=== PATIENT | male | born 1955 | race Caucasian/White ===

== ENCOUNTER 2020-06-22 05:09 | Inpatient (IN) ==
--- NOTE | 2020-06-14 12:27 | PAT Medication Instructions ---
Medication Instructions Date of Service June 14, 2020 Home Medications amlodipine 10 mg PO QAM ascorbic acid (vitamin C) [Vitamin C] 500 mg PO QAM aspirin [Aspir-81] 81 mg PO HS clonidine HCl 0.2 mg PO HS fenofibrate nanocrystallized 145 mg PO QAM garlic 1,000 mg PO QAM linagliptin-metformin [Jentadueto XR] 1 tab PO QPM losartan 100 mg PO QAM lovastatin 40 mg PO HS magnesium oxide 400 mg PO BID metoprolol tartrate 25 mg PO BID multivitamin 1 tab PO QAM omega 4-qwm-zad-fish oil [[place] 3 Fish Oil] 1 cap PO QAM omeprazole 20 mg PO QAM STOP taking 2 weeks before surgery (or as soon as possible if surgery is within 2 weeks) garlic 1,000 mg PO QAM omega 7-tzo-cub-fish oil [[place] 3 Fish Oil] 1 cap PO QAM STOP taking 48 hours before surgery fenofibrate nanocrystallized 145 mg PO QAM DO NOT take the morning of surgery ascorbic acid (vitamin C) [Vitamin C] 500 mg PO QAM losartan 100 mg PO QAM magnesium oxide 400 mg PO BID multivitamin 1 tab PO QAM Take morning of surgery With a small sip of water, OTHERWISE NOTHING TO EAT OR DRINK AFTER MIDNIGHT: amlodipine 10 mg PO QAM metoprolol tartrate 25 mg PO BID omeprazole 20 mg PO QAM Take evening before surgery aspirin [Aspir-81] 81 mg PO HS clonidine HCl 0.2 mg PO HS linagliptin-metformin [Jentadueto XR] 1 tab PO QPM lovastatin 40 mg PO HS magnesium oxide 400 mg PO BID metoprolol tartrate 25 mg PO BID Other Notes If you have any questions please call us at [phone] or [phone] or [phone] or [phone]
--- NOTE | 2020-06-16 11:34 | Anesthesiology Consultation ---
Date of Service June 16, 2020 Assessment & Plan (1) Encounter for pre-operative examination: - COVID screening: Per assessment on 06/16: Travel screen negative, no known COVID-19 positive contacts or current COVID-19 related symptoms. Patient has had initial covid vaccine. Surgeon arranging preop COVID testing (scheduled 06/17 but patient will see if able to do 06/16 at surgeon's office). Awaiting results. - Check BSG AM DOS - ASA instructions: to continue perioperatively unless told otherwise by surgeon/prescriber Chart Review Chart Review: Acceptable Risk for Surgery (pending surgeon-ordered PCP clearance ) and Patient seen in Pre Admission Testing Teaching & Discussion Pre-Anesthesia Teaching/Discussion Notes: Instructed NPO after midnight before surgery,except medications with 15 cc of water. Medication instructions provided according to the PAT guidelines. History Surgery Operation Date: 06/22/20 11:20 Proposed Procedures p Right Anterior Total Hip Arthroplasty - Neri Strauss DO Height/Weight Height: 5 ft 7 in Weight: 84.6 kg Allergies Allergy/AdvReac Type Severity Reaction Status Date / Time No Known Allergies Allergy Verified 06/02/20 10:49 Medications Home Medications Medication Instructions Recorded Confirmed Last Taken amlodipine 10 mg PO QAM 06/02/20 06/02/20 Unknown ascorbic acid (vitamin C) [Vitamin 500 mg PO QAM 06/02/20 06/02/20 Unknown C] aspirin [Aspir-81] 81 mg PO HS 06/02/20 06/02/20 Unknown clonidine HCl 0.2 mg PO HS 06/02/20 06/02/20 Unknown fenofibrate nanocrystallized 145 mg PO QAM 06/02/20 06/02/20 Unknown garlic 1,000 mg PO QAM 06/02/20 06/02/20 Unknown linagliptin-metformin [Jentadueto 1 tab PO QPM 06/02/20 06/02/20 Unknown XR] losartan 100 mg PO QAM 06/02/20 06/02/20 Unknown lovastatin 40 mg PO HS 06/02/20 06/02/20 Unknown magnesium oxide 400 mg PO BID 06/02/20 06/02/20 Unknown metoprolol tartrate 25 mg PO BID 06/02/20 06/02/20 Unknown multivitamin 1 tab PO QAM 06/02/20 06/02/20 Unknown omega 6-ued-zsa-fish oil [[place] 3 1 cap PO QAM 06/02/20 06/02/20 Unknown Fish Oil] omeprazole 20 mg PO QAM 06/02/20 06/02/20 Unknown Past Medical History Medical History (Updated 06/16/20 @ 11:32 by Viki Cosme) Arthritis Diabetes mellitus, type 2 NIDDM GERD (gastroesophageal reflux disease) Hyperlipidemia Hypertension Exercise / Class Metabolic Activity II 4-5 Yardwork/Stairs/Walk up hill Past Surgical History Surgical History (Updated 06/16/20 @ 11:31 by Viki Cosme) History of colonoscopy History of esophagogastroduodenoscopy (EGD) History of herniorrhaphy History of total knee replacement Left Hx of shoulder surgery Left Past Anesthesia History No Hx of Anesthesia Complications (exept episode PONV) and No Family Hx of Anesthesia Complications History of PONV No Hx of Motion Sickness and History of PONV (x1 episode) Social History Smoking Status: Never smoker Do You Dip or Chew Tobacco: No Hx Alcohol Use: Yes Alcohol type: beer alcohol intake frequency: holidays/special occasions only Hx Substance Use: No Review of Systems Patient denies chest pain, shortness of breath, dyspnea on exertion, joint pain, reflux, cough, wheezing, palpitations. Physical Exam Vital Signs VITALS BP 154/79 P 58 TEMP 98.1 SP02 98%RA RESP 16 PHYSICAL Full neck and c-spine range of motion. Full TMJ range of motion. TMD 3 finger breaths Mallampati Score 2 Dentition: missing several teeth including upper front right tooth Lungs: clear throughout to auscultation Cardiac: regular rate and rhythm, no murmurs noted Spine: normal Carotid arteries: negative bruit Extremities: no edema Testing Laboratory Results 06/16/20 12:07 06/16/20 12:07 PT 10.0 Seconds (9.0-12.0) 06/16/20 12:07 INR 1.0 (0.9-1.1) 06/16/20 12:07 APTT 23.1 Seconds (21.0-31.0) 06/16/20 12:07 Hemoglobin A1c 6.8 % (4.5-5.6) H 06/16/20 12:07 Urine Color Dark Yellow 06/16/20 Unknown Urine Appearance Clear (Clear) 06/16/20 Unknown Urine pH 5.0 (4.5-7.5) 06/16/20 Unknown Ur Specific [place] 1.028 (1.000-1.030) 06/16/20 Unknown Urine Protein Negative (Negative) 06/16/20 Unknown Urine Glucose (UA) Negative (Negative) 06/16/20 Unknown Urine Ketones Trace (Negative) H 06/16/20 Unknown Urine Nitrite Negative (Negative) 06/16/20 Unknown Ur Leukocyte Esterase Negative (Negative) 06/16/20 Unknown Blood Type O Positive 06/16/20 12:07 Antibody Screen NEGATIVE 06/16/20 12:07 Electrocardiogram Date: 06/16/20 Findings: + SB @ (56) Chest X-Ray Date: 06/16/20 FINDINGS: PA and lateral chest radiographs are obtained. No prior studies are available for comparison at the time of dictation. The heart is mildly enlarged noting atherosclerotic calcification of the thoracic aorta. The pulmonary vasculature is noncongested. The lungs and pleural spaces are clear. There is no pneumothorax. The skeletal structures appear osteopenic. The bony thorax appears intact. Surgical anchors are present in the left humeral head. IMPRESSION: Mild cardiomegaly with no active disease in the chest.
--- NOTE | 2020-06-16 12:35 | XRay Report ---
TWO VIEW CHEST CLINICAL HISTORY: Preoperative examination. FINDINGS: PA and lateral chest radiographs are obtained. No prior studies are available for compariso n at the time of dictation. The heart is mildly enlarged noting atherosclerotic calcification of the thoracic aorta. The pulmonary vasculature is noncongested. The lungs and pleural spaces are clear. There is no pneumothorax. The skeletal structures appear osteopenic. The bony thorax appears intact. Surgical anchors are present in the left humeral head. IMPRESSION: Mild cardiomegaly with no active disease in the chest. ACT 112: Negative or not required by law. Electronically signed by: Jonnie Carter M.D. 06/16/2020 12:34 PM
[2020-06-16 13:34] LABS: Basophils # (auto) 0.02 K/uL (0-0.2); Basophils % (auto) 0.4 %; Eosinophils # (auto) 0.08 K/uL (0-0.5); Eosinophils % (auto) 1.6 %; Hematocrit (blood only) 36.2 % (42-52); Hemoglobin 13.3 g/dL (14.0-18.0); Immature Granulocytes # (auto) 0.02 K/uL (0.00-0.02); Immature Granulocytes % (auto) 0.4 %; Lymphocytes # (auto) 1.54 K/uL (1.2-3.4); Lymphocytes % (auto) 31.3 %; Mean Corpuscular Hemoglobin 29.3 pg (25-34); Mean Corpuscular Hgb Conc 36.7 g/dL (32-36); Mean Corpuscular Volume 79.7 fL (80-100); Mean Platelet Volume 9.1 fL (7.4-10.4); Monocytes # (auto) 0.38 K/uL (0.11-0.59); Monocytes % (auto) 7.7 %; Neutrophils # (auto) 2.88 K/uL (1.4-6.5); Neutrophils % (auto) 58.6 %; Platelet Count 322 K/uL (130-400); RDW Coefficient of Variation 12.6 % (11.5-14.5); RDW Standard Deviation 36.8 fL (36.4-46.3); Red Blood Count 4.54 M/uL (4.7-6.1); White Blood Count 4.92 K/uL (4.8-10.8)
[2020-06-16 13:45] LABS: Partial Thromboplastin Ratio 0.9; Partial Thromboplastin Time 23.1 Seconds (21.0-31.0)
[2020-06-16 13:54] LABS: Appearance Urine Clear (Clear); Bilirubin Urine Negative (Negative); Blood Urine Negative (Negative); Color Urine Dark Yellow; Glucose Urine UA Negative (Negative); Ketones Urine Trace (Negative); Leukocyte Esterase Urine Negative (Negative); Nitrite Urine Negative (Negative); Protein Urine Negative (Negative); Specific Gravity Urine 1.028 (1.000-1.030); Urobilinogen Urine Negative (Negative)
[2020-06-16 13:56] LABS: Albumin Level 3.9 gm/dl (3.4-5.0); BUN Creatinine Ratio 19.8 (10-20); Calcium 9.8 mg/dl (8.5-10.1); Creatinine Clr Calc Pharmacy 88.2 ml/min; Est GFR (African American) 105.2; Est GFR (Non-African American) 90.8; Potassium 3.8 mmol/L (3.5-5.1)
[2020-06-16 14:09] LABS: Estimated Average Glucose 148 mg/dl; Hemoglobin A1C 6.8 % (4.5-5.6)
--- NOTE | 2020-06-16 14:53 | Electrocardiogram Report ---
Test Reason : Blood Pressure : / mmHG Vent. Rate : 056 BPM Atrial Rate : 056 BPM P-R Int : 184 ms QRS Dur : 114 ms QT Int : 434 ms P-R-T Axes : 067 037 039 degrees QTc Int : 418 ms Sinus bradycardia Otherwise normal ECG No previous ECGs available Confirmed by Geoff Hernandez ([id number]) on 06/16/2020 2:53:15 PM Referred By: Neri Strauss Confirmed By:Geoff Hernandez
--- NOTE | 2020-06-19 09:56 | History & Physical Report ---
Date of Service June 22, 2020 Assessment & Plan (1) Degenerative joint disease of right hip: I have indicated the patient for right anterior total hip replacement. The risks, benefits and complications of surgery were explained to the patient which include but not limited to infection, acute blood loss, DVT/PE, injury to nerves, vessels, bone, soft tissue, arthrofibrosis, chronic pain, failure of the prosthesis, hip dislocation, leg length discrepancy, need for additional surgery, cardiac and pulmonary events and . The patient wished to proceed with surgery and informed consent was obtained at this time. We will plan for 81mg ASA BID post-operatively for DVT prophylaxis. Upon discharge the patient will be discharged home with home health services. Appropriate clearances by PCP were obtained. History of Present Illness Chief Complaint: Right hip pain/DJD Primary Care Provider: Brook Dawn The patient is a 64 year old male who presents with complaints of severe right hip pain and DJD. The patient has failed outpatient conservative treatments to this point which included NSAIDs, IA corticosteroid injection, HEP. The patient's pain and limited function have progressed to the point where they severely hinder their activities of daily living and they no longer tolerate exercise programs. They are requesting to proceed with total hip replacement surgery. Allergies Allergy/AdvReac Type Severity Reaction Status Date / Time No Known Allergies Allergy Verified 06/22/20 05:23 Home Medications Medication Instructions Recorded Confirmed Type amlodipine 10 mg PO QAM 06/02/20 06/22/20 History ascorbic acid (vitamin C) [Vitamin 500 mg PO QAM 06/02/20 06/22/20 History C] aspirin [Aspir-81] 81 mg PO HS 06/02/20 06/22/20 History clonidine HCl 0.2 mg PO HS 06/02/20 06/22/20 History fenofibrate nanocrystallized 145 mg PO QAM 06/02/20 06/22/20 History garlic 1,000 mg PO QAM 06/02/20 06/22/20 History linagliptin-metformin [Jentadueto 1 tab PO QPM 06/02/20 06/22/20 History XR] losartan 100 mg PO QAM 06/02/20 06/22/20 History lovastatin 40 mg PO HS 06/02/20 06/22/20 History magnesium oxide 400 mg PO BID 06/02/20 06/22/20 History metoprolol tartrate 25 mg PO BID 06/02/20 06/22/20 History multivitamin 1 tab PO QAM 06/02/20 06/22/20 History omega 9-lfz-mro-fish oil [[place] 3 1 cap PO QAM 06/02/20 06/22/20 History Fish Oil] omeprazole 20 mg PO QAM 06/02/20 06/22/20 History Past Med/Surg History Medical History Arthritis Diabetes mellitus, type 2 NIDDM GERD (gastroesophageal reflux disease) Hyperlipidemia Hypertension Surgical History History of colonoscopy History of esophagogastroduodenoscopy (EGD) History of herniorrhaphy History of total knee replacement Left Hx of shoulder surgery Left Family History (Updated 06/22/20 @ 05:23 by Darlene Dunbar RN) Other No known health problems Social History Smoking Status: Never smoker Second Hand Exposure: Yes ( A CHILD); Do You Dip or Chew Tobacco: No; Hx Alcohol Use: Yes Alcohol type: beer Hx Substance Use: No Preferred Language: Gabonese Communication Ability: Effective Water Registrar Required: No Beliefs That Will Affect Care: None Current Living Situation: Spouse Other Information That Helps Us Care for You: No Feels Safe at Home: Yes Safety Concerns: Feels Safe At This Time Assistive Devices: None Review of Systems Review of Systems: All systems reviewed & are unremarkable except as noted in HPI & below Constitutional: as per Subjective / HPI Physical Exam Physical Exam: RLE NVSI +EHL/FHL/TA/GS SILT grossly, +2 DP pulse, compartments soft NT, limited painful ROM of the hip, antalgic gait. Constitutional: WD/WN, vitals as above Eyes: PERRL, conjunctivae normal, anicteric sclerae ENMT: external ear and nose normal, oropharynx normal Neck: trachea midline, no thyromegaly Respiratory: normal respiratory effort, lungs clear to auscultation Cardiovascular: RRR, no murmur, no edema Gastrointestinal (Abdomen): normal bowel sounds, soft, nontender, no hepatosplenomegaly Musculoskeletal: no cyanosis or clubbing, extremities motor strength 5/5 Skin: no rashes, warm and dry Neurologic: patellar DTR's 2+ bilat, sensation intact Psychiatric: A+Ox3, euthymic affect Lymphatic: no cervical or axillary lymphadenopathy Results & Data Results & Data ([facility]) Diagnostic Findings Multiple views of the hip demonstrates severe DJD with complete loss of the joint space. +osteophytes, +sclerosis, +subchondral cysts. Pre Admission Testing Addendum Laboratory Results 06/16/20 12:07 06/16/20 12:07 PT 10.0 Seconds (9.0-12.0) 06/16/20 12:07 INR 1.0 (0.9-1.1) 06/16/20 12:07 APTT 23.1 Seconds (21.0-31.0) 06/16/20 12:07 Hemoglobin A1c 6.8 % (4.5-5.6) H 06/16/20 12:07 Urine Color Dark Yellow 06/16/20 Unknown Urine Appearance Clear (Clear) 06/16/20 Unknown Urine pH 5.0 (4.5-7.5) 06/16/20 Unknown Ur Specific [place] 1.028 (1.000-1.030) 06/16/20 Unknown Urine Protein Negative (Negative) 06/16/20 Unknown Urine Glucose (UA) Negative (Negative) 06/16/20 Unknown Urine Ketones Trace (Negative) H 06/16/20 Unknown Urine Nitrite Negative (Negative) 06/16/20 Unknown Ur Leukocyte Esterase Negative (Negative) 06/16/20 Unknown Blood Type O Positive 06/16/20 12:07 Antibody Screen NEGATIVE 06/16/20 12:07 06/16/20 Unknown Urine Culture - Final Urine,Clean Catch No growth - less than 1,000 colonies/mL.
[2020-06-22] MEDS ORDERED: ACETAMINOPHEN 500 MG TAB PO SCH (06:00)
[2020-06-22] MEDS ORDERED: ROPIVACAINE 0.5% HCL/PF 150 MG, BUPIVACAINE 0.75% MPF 20 ML, EPINEPHrine 30MG/30ML (OR ... INSTIL SCH (06:00)
[2020-06-22] MEDS ORDERED: TRANEXAMIC ACID 1,000 MG **IV Intra-op IV SCH (06:00)
[2020-06-22] MEDS ORDERED: dexAMETHasone 4 MG TAB PO SCH (06:00)
[2020-06-22] MEDS ORDERED: ceFAZolin 2000MG 2,000 MG/15 ML SYR IV SCH (06:00)
[2020-06-22] MEDS ORDERED: LR 15ML/HR IV SCH (06:00)
[2020-06-22] MEDS ORDERED: METOCLOPRAMIDE HCL 10 MG TABLET PO SCH (06:00)
[2020-06-22] MEDS ORDERED: FAMOTIDINE 20 MG TAB PO SCH (06:00)
[2020-06-22] MEDS ORDERED: TRANEXAMIC ACID 1,000 MG **IV Pre-op IV SCH (06:00)
[2020-06-22] MEDS ORDERED: CeleBREX 200 MG CAP PO SCH (06:00)
[2020-06-22] MEDS ORDERED: LR 500ML BOLUS, THEN 15ML/HR IV SCH (06:00)
[2020-06-22] MEDS ORDERED: BUPIVACAINE 0.5 % 5 MG/1 ML PF 10ML VIAL ONE (06:20)
[2020-06-22] MEDS ORDERED: fentaNYL citrate 100 MCG/2 ML VIAL IV PRN (06:27)
[2020-06-22] MEDS ORDERED: ePHEDrine sulfate 50 MG/ML AMP IV PRN (06:27)
[2020-06-22] MEDS ORDERED: ATROPINE SULFATE 0.1 MG/ML 10ML SYR IV PRN (06:27)
[2020-06-22] MEDS ORDERED: ONDANSETRON INJ 2 MG/ML 2 ML VIAL IV PRN ×2 (06:27→10:01)
[2020-06-22] MEDS ORDERED: BACITRACIN INJ 50,000 UNIT VIAL ONE (06:32)
[2020-06-22] MEDS ORDERED: ORTHO JOINT ANESTHETIC ONE (06:32)
[2020-06-22] MEDS ORDERED: MIDAZOLAM HCL 1 MG/ML 2ML VIAL ONE (06:45)
--- NOTE | 2020-06-22 06:49 | History & Physical Bridge Note ---
Date of Service June 22, 2020 History & Physical Bridge Note I have examined the patient, reviewed the History & Physical and in the interval since the performance of the History & Physical I have noted the following changes of clinical significance: no changes noted
[2020-06-22] MEDS ORDERED: PROPOFOL IV EMULSION 10 MG/ML 20 ML VIAL IV ONE ×2 (07:26→08:32)
[2020-06-22] MEDS ORDERED: ONDANSETRON INJ 2 MG/ML 2 ML VIAL ONE (07:26)
[2020-06-22] MEDS ORDERED: HYDROmorphone INJ 2 MG/ML SYR/VIAL ONE (07:56)
--- NOTE | 2020-06-22 08:46 | Post Operative Brief Note ---
Immediate Post Op Note v1 Date of Surgery June 22, 2020 Pre & Post Diagnosis Operation Date: 06/22/20 07:00 Pre-Op Diagnosis: Unilateral Primary Oseoarthritis, Right Hip Post-Op Diagnosis: Unilateral Primary Oseoarthritis, Right Hip I identified the patient and participated in the time-out.: Yes Procedure Operation Date: 06/22/20 07:00 Actual Procedures p Right Anterior Total Hip Arthroplasty(Right) - Neri Strauss DO Surgeon Neri Strauss DO Business Excellence Leader Jostin Landeros Estimated Blood Loss 150 Findings Consistent with Post-Op Diagnosis Fluids See anesthesia report Specimens Femoral head Anesthesia Type Spinal MAC Complications none Disposition Disposition: Recovery Room Overlapping Procedure I was present for: the critical portions of procedure. I was immediately available: during the entire case. Back up surgeon: was not required during procedure.
--- NOTE | 2020-06-22 08:47 | Operative Report ---
Post Operative Report Pre & Post Diagnosis Operation Date: 06/22/20 07:00 Pre-Op Diagnosis: Unilateral Primary Oseoarthritis, Right Hip Post-Op Diagnosis: Unilateral Primary Oseoarthritis, Right Hip I identified the patient and participated in the time-out.: Yes Procedure Operation Date: 06/22/20 07:00 Actual Procedures p Right Anterior Total Hip Arthroplasty(Right) - Neri Strauss DO Surgeon Neri Strauss DO Facilities Maintenance Technician Jostin Landeros Estimated Blood Loss 150 Findings Consistent with Post-Op Diagnosis Fluids See anesthesia report Specimens femoral head Anesthesia Type Spinal MAC Complications none Disposition Disposition: Recovery Room Indications The patient is a 64-year-old male who presents with severe progressive right hip DJD who has failed outpatient conservative treatments. I indicated the patient for a anterior total hip replacement and the risks and benefits were explained in detail which include but not limited to infection, bleeding, blood clot, dam age to surrounding bone, nerves, vessels, soft tissue, hip dislocation, failure of the prosthesis, leg length discrepancy, need for additional surgery and . The patient agreed to proceed with replacement of the hip and informed consent was obtained. Appropriate clearances were obtained. Description of Procedure COMPONENTS USED: [employer] hip system: Acetabulum size 54, femur size 13.5 extended offset, femoral head 36-3.5, liner 54x36, acetabular screw 30 mm x 1. DESCRIPTION OF PROCEDURE: Following satisfactory spinal anesthesia, the patient was placed supine on the OR table. The left leg was placed in the well leg siegel and the right leg in the traction device. The right leg was prepared with ChloraPrep and draped sterilely. A surgical timeout was performed, patient identified and site tigist verified. Appropriate antibiotics were given. A standard anterior approach in the interval between the sartorius and tensor muscles was performed. Dissection was carried down through subcutaneous tissues. Electrocautery was utilized for hemostasis. Circumflex femoral vessels were identified, tied and ligated. The anterior capsular fat pad was removed and the capsulotomy was performed revealing the arthritic femoral neck and head. A femoral neck cut was made with reciprocating saw and the bone fragm ents removed. The acetabular self-retraining retractor was placed. Acetabular reaming was completed under fluoroscopic guidance, a 54 osteo-Ti G7 shell was impacted into an anatomic position and secured with a acetabular screw. Local anesthetic was placed and following irrigation, the polyethylene liner was placed. The femur was placed into position of external rotation, extension and adduction . Femoral canal was prepared up to the size 13.5 extended offset. Trial reduction with a 36-3.5 neck length head showed good soft tissue tension, leg lengths restored, and good fit and fill of the proximal canal using fluoroscopic landmarks. The hip was dislocated. The trial component was removed. The final implant was placed. The hip was irrigated with sterile saline solution and reduced. A Betadine soak was performed. After 3 minutes, the hip was once more irrigated with copious sterile saline solution with bacitracin. Monica-incisional soft tissue was injected utilizing [place] Orthomix which includes a combination of Ropivicaine 0.5% 150mg, Bupivicaine 0.5%/Epinephrine 1:200,000 30ml, Toradol 30mg, Dexamethasone 4mg, Ketamine 10mg, Clonidine 100mcg and NSS 30ml solution. The capsule was then closed with 1-0 Vicryl interrupted figure of eight sutures. The fascia was closed with a running suture of #1 Vicryl, the subcutaneous tissues with 2-0 Vicryl and the skin was closed with teto and a sterile dry dressing was applied which included leonid incisional VAC. The patient tolerated the procedure well and was transported to PACU in stable condition. Due to the complex nature of the procedure, the entire surgery was performed with the operational assistance of Jostin Landeros PA-C. The commissary assistant, under direct supervision, was involved in the actual performance of all aspects of the surgical procedure including patient positioning, hemostasis, tissue retraction, instrument management and wound closure. I attest to the content of the Intraoperative Record and any orders documented therein. Any exceptions are noted below.
--- NOTE | 2020-06-22 08:53 | Fluoroscopy Report ---
INTRAOPERATIVE RADIOGRAPHS CLINICAL HISTORY: Right hip arthroplasty. Fluoroscopy time: 41 seconds. FINDINGS: 2 spot fluoroscopic images of the pelvis are obtained. A bipolar right hip arthroplasty is in near-anatomic alignment. A single cortical lag screw transfixes the acetabular cup. There is no ev idence of acute fracture on these fluoroscopic views. IMPRESSION: Intraoperative images as above. Electronically signed by: Jonnie Carter M.D. 06/22/2020 8:51 AM
--- NOTE | 2020-06-22 09:55 | XRay Report ---
SINGLE VIEW PELVIS; SINGLE VIEW RIGHT HIP CLINICAL HISTORY: Postoperative examination. FINDINGS: An AP portable view of the hips and pelvis with a crosstable lateral portable view of the r ight hip are obtained. A bipolar right hip arthroplasty is in near-anatomic alignment. A single maribel ical lag screw transfixes the acetabular cup. No acute fracture is identified. There are expected pos toperative changes overlying the right hip including skin clips, subcutaneous gas, and soft tissue sw elling. Moderate degenerative joint space narrowing is present in the left hip. IMPRESSION: Expected postoperative findings status post right hip arthroplasty. No acute fracture is seen. ACT 112: Negative or not required by law. Electronically signed by: Jonnie Carter M.D. 06/22/2020 9:53 AM
[2020-06-22] MEDS ORDERED: MAGNESIUM HYDROXIDE SUSP 30 ML UDC PO PRN (10:01)
[2020-06-22] MEDS ORDERED: HYDROmorphone INJ 0.5 MG/0.5 ML SYR IV PRN (10:01)
[2020-06-22] MEDS ORDERED: NALOXONE HCL 0.4 MG/1 ML VIAL/CARP IV PRN (10:01)
[2020-06-22] MEDS ORDERED: METOCLOPRAMIDE HCL INJ 5 MG/ML 2 ML VIAL IV PRN (10:01)
[2020-06-22] MEDS ORDERED: diphenhydrAMINE Capsule 25 MG CAP PO PRN (10:01)
[2020-06-22] MEDS ORDERED: PHARMACY GLYCEMIC MGMT CONSULT PRN (10:01)
[2020-06-22] MEDS ORDERED: bisacodyL 10 MG SUPP PR PRN (10:01)
--- NOTE | 2020-06-22 10:14 | Pharmacy Report ---
Pharmacy Glycemic Short Note 2 - Date of Service June 22, 2020 - Glycemic Short BSG Results (Last 24 hours): 06/22/20 06/22/20 05:39 09:10 POC Glucose 182 H 231 H OUTPATIENT ANTIDIABETIC REGIMEN: * Linagliptin-metformin 5-1000 mg PO with evening meal * HbA1c: 6.8% (06/16/20) ASSESSMENT: * SW is a 64 year old female POD #0 s/p right total hip arthroplasty * Received 8 mg PO dexamethasone and intra-articular ortho-mix containing dexamethasone * Preop BSG of 182 mg/dL and postop BSG of 231 mg/dL * Will cover dexamethasone with one-time NPH and utilize aggressive Novolog parameters PLAN FOR INPATIENT GLYCEMIC CONTROL: * Hold outpatient oral diabetes medications * Basal insulin * NPH 35 units SC x 1 (~0.4 unit/kg) * Bolus insulin * NovoLog per scale ACHS or Q6hrs while NPO * Goal Range: Low 110 mg/dL - High 140 mg/dL * Correction Factor: 20 mg/dL/unit * Nutritional / Prandial insulin per carb ratio of 1 unit per 6 grams CHO consumed * 0000 check with same parameters PLAN FOR DISCHARGE: * HbA1c of 6.8% suggests excellent outpatient glycemic control * Continue current regimen
[2020-06-22] MEDS ORDERED: GLUCAGON FOR INJ 1 MG VIAL IM PRN (10:15)
[2020-06-22] MEDS ORDERED: DEXTROSE 50% 50 ML SYRINGE IV PRN (10:15)
[2020-06-22] MEDS ORDERED: GLUCOSE 40% GEL 15 GM TUBE PO PRN (10:15)
[2020-06-22] MEDS ORDERED: GLUCOSE 10 TABS/TUBE PO PRN (10:15)
[2020-06-22] MEDS ORDERED: CARBOHYDRATES FOR HYPOGLYCEMIA PO PRN (10:15)
[2020-06-22] MEDS: SODIUM CHLORIDE 0.9% 1000ML 1,000 ML IV SCH ×2 (10:29→19:32)
[2020-06-22] MEDS ORDERED: NovoLIN-N (NPH) PER UNIT CHARGE SQ ONE (10:30)
[2020-06-22] MEDS: INSULIN ASPART 100 UNITS/ML 3 ML PEN SC SCH ×4 (10:31→21:53)
[2020-06-22] MEDS: DOCUSATE SODIUM 100 MG CAP PO SCH ×2 (10:36→21:13)
[2020-06-22] MEDS: MULTIVITAMIN TAB PO SCH (12:03)
[2020-06-22] MEDS: PANTOprazole 40 MG TAB PO SCH (12:03)
[2020-06-22] MEDS: METOPROLOL TARTRATE 25 MG TAB PO SCH ×2 (12:07→21:13)
[2020-06-22] MEDS: LOSARTAN POTASSIUM 50 MG TAB PO SCH (12:07)
[2020-06-22] MEDS: FENOFIBRATE NANOCRYSTALLIZED 145 MG TABLET PO SCH (12:08)
[2020-06-22] MEDS: amLODIPine BESYLATE 5 MG TAB PO SCH (12:08)
[2020-06-22] MEDS: KETOROLAC TROMETHAMINE 15 MG/ML VIAL IV SCH ×3 (12:09→23:31)
[2020-06-22] MEDS: ACETAMINOPHEN 500 MG TAB PO SCH ×2 (14:12→21:15)
--- NOTE | 2020-06-22 15:48 | Anesthesiology Progress Note ---
Date of Service June 22, 2020 Anesthesia Post Procedure Vital Signs Vital Signs: Temp Pulse Pulse Resp BP BP Pulse Ox 06/22/20 13:00 66 18 113/68 98 06/22/20 12:04 55 L 16 137/68 98 06/22/20 10:55 36.7 C 56 L 18 142/81 H 98 06/22/20 10:27 36.9 C 56 L 18 126/76 98 06/22/20 09:55 36.3 C L 52 L 18 122/71 96 06/22/20 09:40 56 L 20 137/63 97 06/22/20 09:30 36.7 C 58 L 14 130/68 99 06/22/20 09:20 53 L 14 148/64 H 96 06/22/20 09:10 54 L 14 146/70 H 98 06/22/20 09:06 36.6 C 52 L 16 123/72 100 06/22/20 05:29 36.5 C 52 L 18 173/82 H 100 Transfer of Care Handoff Completed per policy Notes Mental Status: alert / awake / arousable and participated in evaluation Patient Amnestic to Procedure: Yes Nausea / Vomiting: adequately controlled Pain: adequately controlled Airway Patency, RR, SpO2: stable & adequate BP & HR: stable & adequate Hydration State: stable & adequate Neuraxial Anesthesia: was administered and sensory block is resolving Anesthetic Complications: no major complications apparent and Pt Satisfied with anesthetic care
[2020-06-22] MEDS: ceFAZolin 2000MG 2,000 MG/15 ML SYR IV SCH ×2 (16:53→21:14)
--- NOTE | 2020-06-22 17:47 | Orthopedic Progress Note ---
Date of Service June 22, 2020 Assessment & Plan (1) Degenerative joint disease of right hip: Status post right anterior total hip arthroplasty -Ancef x24 -DVT prophylaxis: SCDs, teds, 81 mg ASA twice daily -Weight-bear as tolerates right lower extremity -PT/OT -Postoperative x-ray demonstrates a well aligned well fixed prosthesis without fracture or dislocation -A.m. labs -DC planning Admission and Anticipated Discharge Date Admission Date: June 22, 2020 Subjective Post Operative Progress Note Patient seen sitting in chair at bedside, comfortable, denies complaints, pain well controlled, no acute issues. Review of Systems Review of Systems: All systems reviewed & are unremarkable except as noted in HPI & below Constitutional: as per Subjective / HPI Physical Exam Physical Exam: RLE NVSI +EHL/FHL/TA/GS SILT grossly, +2 DP pulse, compartments soft NT, dressing cdi. Constitutional: WD/WN, vitals as above Results & Data ([facility]) Vital Signs (Past 12 Hours) Vital Signs Temp Pulse Pulse Resp BP Pulse Ox 06/22/20 16:00 36.7 C 60 16 145/74 H 98 06/22/20 13:00 66 18 113/68 98 06/22/20 12:04 55 L 16 137/68 98 06/22/20 10:55 36.7 C 56 L 18 142/81 H 98 06/22/20 10:27 36.9 C 56 L 18 126/76 98 06/22/20 09:55 36.3 C L 52 L 18 122/71 96 06/22/20 09:40 56 L 20 137/63 97 06/22/20 09:30 36.7 C 58 L 14 130/68 99 06/22/20 09:20 53 L 14 148/64 H 96 06/22/20 09:10 54 L 14 146/70 H 98 06/22/20 09:06 36.6 C 52 L 16 123/72 100
[2020-06-22] MEDS: oxyCODONE HCL IR 5 MG TAB (IMMEDIATE RELEASE) PO PRN ×2 (19:30→23:31)
[2020-06-22] MEDS ORDERED: cloNIDine HCL 0.1 MG TAB PO SCH (21:00)
[2020-06-22] MEDS ORDERED: LOVASTATIN 20 MG TAB PO SCH (21:00)
[2020-06-22] MEDS ORDERED: SENNA 8.6 MG TAB PO SCH (21:00)
[2020-06-23] MEDS ORDERED: INSULIN ASPART 100 UNITS/ML 3 ML PEN SC SCH
[2020-06-23] MEDS: ACETAMINOPHEN 500 MG TAB PO SCH ×2 (05:21→14:03)
[2020-06-23] MEDS: KETOROLAC TROMETHAMINE 15 MG/ML VIAL IV SCH (05:21)
[2020-06-23 06:14] LABS: Basophils # (auto) 0.01 K/uL (0-0.2); Basophils % (auto) 0.1 %; Eosinophils # (auto) 0.01 K/uL (0-0.5); Eosinophils % (auto) 0.1 %; Hematocrit (blood only) 27.1 % (42-52); Hemoglobin 10.1 g/dL (14.0-18.0); Immature Granulocytes # (auto) 0.03 K/uL (0.00-0.02); Immature Granulocytes % (auto) 0.3 %; Lymphocytes # (auto) 1.09 K/uL (1.2-3.4); Lymphocytes % (auto) 10.3 %; Mean Corpuscular Hgb Conc 37.3 g/dL (32-36); Mean Corpuscular Volume 80.4 fL (80-100); Mean Platelet Volume 8.7 fL (7.4-10.4); Monocytes # (auto) 0.86 K/uL (0.11-0.59); Monocytes % (auto) 8.1 %; Neutrophils # (auto) 8.62 K/uL (1.4-6.5); Neutrophils % (auto) 81.1 %; Platelet Count 251 K/uL (130-400); RDW Coefficient of Variation 12.8 % (11.5-14.5); RDW Standard Deviation 37.3 fL (36.4-46.3); Red Blood Count 3.37 M/uL (4.7-6.1); White Blood Count 10.62 K/uL (4.8-10.8)
[2020-06-23 06:40] LABS: BUN Creatinine Ratio 22.1 (10-20); Calcium 8.2 mg/dl (8.5-10.1); Creatinine Clr Calc Pharmacy 80.4 ml/min; Est GFR (African American) 96.4; Est GFR (Non-African American) 83.2; Potassium 4.2 mmol/L (3.5-5.1)
--- NOTE | 2020-06-23 08:18 | Orthopedic Progress Note ---
Date of Service June 23, 2020 Assessment & Plan (1) Degenerative joint disease of right hip: Postop day 1 status post right anterior total hip arthroplasty -Ancef x24, then discontinue -DVT prophylaxis: SCDs, teds, 81 mg ASA twice daily -Weight-bear as tolerates right lower extremity -PT/OT -Postoperative x-ray demonstrates a well aligned well fixed prosthesis without fracture or dislocation -A.m. labs as noted -DC planning-patient is planning on home health services upon discharge. Admission and Anticipated Discharge Date Admission Date: June 22, 2020 Supervising Physician Co-Signing Physician Notes Patient seen and examined, agree with above assessment and plan. Subjective Postop day 1 Patient currently sitting up in bed awake and alert. No complaints this morning. Pain is controlled. He denies shortness of breath, chest pain, lightheadedness. Review of Systems Review of Systems: All systems reviewed & are unremarkable except as noted in HPI & below Physical Exam Physical Exam: Jitendra dressing is intact and functioning. No erythema around the dressing itself. Mild swelling of the thigh. Calves are soft nontender. Neurovascular is intact. Toes are mobile. Leg lengths appear equal. Results & Data ([facility]) Vital Signs (Past 12 Hours) Vital Signs Temp Pulse Resp BP Pulse Ox 06/23/20 07:28 36.7 C 52 L 16 138/67 97 06/23/20 03:42 36.8 C 56 L 16 145/76 H 98 06/22/20 23:34 36.6 C 68 16 157/65 H 99 06/22/20 21:12 60 161/71 H Laboratory Results Laboratory Results WBC 10.62 K/uL (4.8-10.8) 06/23/20 05:57 RBC 3.37 M/uL (4.7-6.1) L 06/23/20 05:57 Hgb 10.1 g/dL (14.0-18.0) L 06/23/20 05:57 Hct 27.1 % (42-52) L 06/23/20 05:57 MCV 80.4 fL (80-100) 06/23/20 05:57 MCH 30.0 pg (25-34) 06/23/20 05:57 MCHC 37.3 g/dL (32-36) H 06/23/20 05:57 RDW Std Deviation 37.3 fL (36.4-46.3) 06/23/20 05:57 RDW Coeff of Ranjit 12.8 % (11.5-14.5) 06/23/20 05:57 Plt Count 251 K/uL (130-400) 06/23/20 05:57 MPV 8.7 fL (7.4-10.4) 06/23/20 05:57 Immature Gran % (Auto) 0.3 % 06/23/20 05:57 Neut % (Auto) 81.1 % 06/23/20 05:57 Lymph % (Auto) 10.3 % 06/23/20 05:57 [place] % (Auto) 8.1 % 06/23/20 05:57 Eos % (Auto) 0.1 % 06/23/20 05:57 Baso % (Auto) 0.1 % 06/23/20 05:57 Neut # (Auto) 8.62 K/uL (1.4-6.5) H 06/23/20 05:57 Lymph # (Auto) 1.09 K/uL (1.2-3.4) L 06/23/20 05:57 [place] # (Auto) 0.86 K/uL (0.11-0.59) H 06/23/20 05:57 Eos # (Auto) 0.01 K/uL (0-0.5) 06/23/20 05:57 Baso # (Auto) 0.01 K/uL (0-0.2) 06/23/20 05:57 Immature Gran # (Auto) 0.03 K/uL (0.00-0.02) H 06/23/20 05:57 PT 10.0 Seconds (9.0-12.0) 06/16/20 12:07 INR 1.0 (0.9-1.1) 06/16/20 12:07 APTT 23.1 Seconds (21.0-31.0) 06/16/20 12:07 PTT Ratio 0.9 06/16/20 12:07 Sodium 140 mmol/L (136-145) 06/23/20 05:57 Potassium 4.2 mmol/L (3.5-5.1) 06/23/20 05:57 Chloride 112 mmol/L (98-107) H 06/23/20 05:57 Carbon Dioxide 25 mmol/L (21-32) 06/23/20 05:57 Anion Gap 3.0 (3-11) 06/23/20 05:57 BUN 21 mg/dl (7-18) H 06/23/20 05:57 Creatinine 0.96 mg/dl (0.6-1.4) 06/23/20 05:57 Est Cr Clr Drug Dosing 80.4 ml/min 06/23/20 05:57 Est GFR ( Amer) 96.4 06/23/20 05:57 Est GFR (Non-Af Amer) 83.2 06/23/20 05:57 BUN/Creatinine Ratio 22.1 (10-20) H 06/23/20 05:57 Glucose 152 mg/dl (70-99) H 06/23/20 05:57 POC Glucose 147 mg/dl (70-99) H 06/23/20 08:04 Estimat Average Glucose 148 mg/dl 06/16/20 12:07 Hemoglobin A1c 6.8 % (4.5-5.6) H 06/16/20 12:07 Calcium 8.2 mg/dl (8.5-10.1) L 06/23/20 05:57 Albumin 3.9 gm/dl (3.4-5.0) 06/16/20 12:07 Urine Color Dark Yellow 06/16/20 Unknown Urine Appearance Clear (Clear) 06/16/20 Unknown Urine pH 5.0 (4.5-7.5) 06/16/20 Unknown Ur Specific [place] 1.028 (1.000-1.030) 06/16/20 Unknown Urine Protein Negative (Negative) 06/16/20 Unknown Urine Glucose (UA) Negative (Negative) 06/16/20 Unknown Urine Ketones Trace (Negative) H 06/16/20 Unknown Urine Blood Negative (Negative) 06/16/20 Unknown Urine Nitrite Negative (Negative) 06/16/20 Unknown Urine Bilirubin Negative (Negative) 06/16/20 Unknown Urine Urobilinogen Negative (Negative) 06/16/20 Unknown Ur Leukocyte Esterase Negative (Negative) 06/16/20 Unknown Blood Type O Positive 06/16/20 12:07 Antibody Screen NEGATIVE 06/16/20 12:07 Impressions 06/22/2020 9:53 AM
[2020-06-23] MEDS: MULTIVITAMIN TAB PO SCH (08:52)
[2020-06-23] MEDS: FENOFIBRATE NANOCRYSTALLIZED 145 MG TABLET PO SCH (08:52)
[2020-06-23] MEDS: amLODIPine BESYLATE 5 MG TAB PO SCH (08:52)
[2020-06-23] MEDS: DOCUSATE SODIUM 100 MG CAP PO SCH (08:52)
[2020-06-23] MEDS: PANTOprazole 40 MG TAB PO SCH (08:52)
[2020-06-23] MEDS: LOSARTAN POTASSIUM 50 MG TAB PO SCH (08:53)
[2020-06-23] MEDS: INSULIN ASPART 100 UNITS/ML 3 ML PEN SC SCH (08:55)
[2020-06-23] MEDS: METOPROLOL TARTRATE 25 MG TAB PO SCH (08:57)
[2020-06-23] MEDS: oxyCODONE HCL IR 5 MG TAB (IMMEDIATE RELEASE) PO PRN ×2 (09:00→14:14)
[2020-06-23] MEDS ORDERED: ASPIRIN 81 MG ECTAB PO SCH (09:00)
[2020-06-23] MEDS ORDERED: LANTUS PER UNIT CHARGE SQ SCH (09:00)
--- NOTE | 2020-06-23 09:42 | Pharmacy Report ---
Pharmacy Glycemic Short Note 2 - Date of Service June 23, 2020 - Glycemic Short BSG Results (Last 24 hours): 06/22/20 06/22/20 06/22/20 12:11 16:58 20:36 Glucose POC Glucose 227 H 115 H 130 H 06/22/20 06/23/20 06/23/20 23:33 05:57 08:04 Glucose 152 H POC Glucose 138 H 147 H OUTPATIENT ANTIDIABETIC REGIMEN: * Linagliptin-metformin 5-1000 mg PO with evening meal * HbA1c: 6.8% (06/16/20) ASSESSMENT: 06/23: * BSGs trended down nicely postoperatively, 227, 115, 130, and 138 mg/dL * Will plan to maintain aggressive Novolog parameters this morning and loosen with lunch pending BSG * Fasting BSG of 147 mg/dL * Will give Lantus in place of outpatient regimen as linagliptin is non- formulary * No ongoing steroids ordered at this time 06/22 * SW is a 64 year old female POD #0 s/p right total hip arthroplasty * Received 8 mg PO dexamethasone and intra-articular ortho-mix containing dexamethasone * Preop BSG of 182 mg/dL and postop BSG of 231 mg/dL * Will cover dexamethasone with one-time NPH and utilize aggressive Novolog parameters PLAN FOR INPATIENT GLYCEMIC CONTROL: * Hold outpatient oral diabetes medications * Basal insulin * Lantus 15 units SQ qAM * Bolus insulin * NovoLog per scale ACHS or Q6hrs while NPO * Goal Range: Low 110 mg/dL - High 140 mg/dL * Correction Factor: 25 mg/dL/unit * Nutritional / Prandial insulin per carb ratio of 1 unit per 8 grams CHO consumed PLAN FOR DISCHARGE: * HbA1c of 6.8% suggests excellent outpatient glycemic control * Continue current regimen
--- NOTE | 2020-06-23 19:28 | Discharge Summary ---
Date of Service June 23, 2020 Admission HPI Per Admitting Provider The patient is a 64 year old male who presents with complaints of severe right hip pain and DJD. The patient has failed outpatient conservative treatments to this point which included NSAIDs, IA corticosteroid injection, HEP. The patient's pain and limited function have progressed to the point where they severely hinder their activities of daily living and they no longer tolerate exercise programs. They are requesting to proceed with total hip replacement surgery. Principal Diagnosis Right anterior total hip replacement Discharge Exam RLE NVSI +EHL/FHL/TA/GS SILT grossly, +2 DP pulse, compartments soft NT, dressing cdi. Constitutional WD/WN, vitals as above Discharge Data Allergies Allergy/AdvReac Type Severity Reaction Status Date / Time No Known Allergies Allergy Verified 06/22/20 05:23 Procedures Performed Operation Date: 06/22/20 07:00 Actual Procedures p Right Anterior Total Hip Arthroplasty(Right) - Neri Strauss DO Ordered Studies 06/22/20 07:00 FL fluoroscopy <1hr Routine FL hip RT 1V Routine Hospital Course (1) Degenerative joint disease of right hip: The patient is a 64 -year-old male who presents with long standing history of severe right hip DJD and failed outpatient conservative treatments. The patient's symptoms have progressed to the point where it has been difficult to perform even normal activities of daily living. I indicated the patient for a right anterior total hip arthroplasty, the risks, benefits and complications of the procedure include but not limited to infection, bleeding, damage to bone, nerves, vessels, surrounding soft tissue, may develop blood clots, loss of function, leg length discrepancy, dislocation, failure of the components, loosening of the components, the need for additional surgery and . The patient wished to proceed with surgery at this time and informed consent was obtained. Hospital Course: On 06/22/20 the patient was taken to the operating room, adequate anesthesia administered and underwent a right anterior total hip arthroplasty. The patient tolerated the procedure well and was taken to the PACU in stable condition. Post-operatively the patient was started on a DVT ppx medication and given appropriate IV antibiotics. Consults were placed to physical therapy, occupational therapy and case management. On POD#1, the patient did well overnight and their pain was well controlled. Labs were drawn and the Hgb was 10.1. The patient progressed well with PT. Dressings were changed at this time and the incision was clean, dry and intact. The patients hospital stay was relatively uneventful and they were deemed stable by the orthopedic team and consultants to be discharged home with on 06/23/20. Discharge Instructions: Upon discharge the patient may weight bear as tolerates through their operative extremity. They were instructed to keep the incision clean and dry at all times. The patient may shower but should not submerge the incision, avoid bathing, pools and hot tubs. The patient was given a script for pain medication and should take as instructed. The patient was given a script for DVT ppx 81mg ASA BID and should take as directed. The patient was instructed to not drive or travel for long distances until cleared to do so. If the patient develops any symptoms of fevers, chills, nausea, vomiting, increased redness, swelling, pain or drainage from the surgical site, they should notify the office and/or proceed to the nearest emergency room. The patient should follow up in 10-14 days after surgery for their routine post-operative follow-up appointment and should call the office, to confirm the date and time. Postop day 1 status post right anterior total hip arthroplasty -Ancef x24, then discontinue -DVT prophylaxis: SCDs, teds, 81 mg ASA twice daily -Weight-bear as tolerates right lower extremity -PT/OT -Postoperative x-ray demonstrates a well aligned well fixed prosthesis without fracture or dislocation -A.m. labs as noted -DC planning-patient is planning on home health services upon discharge. Total Time Total Time Spent Total Time Spent (In Minutes): 30 Discharge Plan Discharge Items Patient Disposition: Home - Home Health Services Reason For Visit: Unilateral Primary Oseoarthritis, Right Hip Discharge Diagnosis: Right total hip replacement Condition on Discharge: Good Activity: Per Instructions section Lifting: Wait until after follow-up appointment Bathing: Keep incision dry Bathing Comment: No bathing, pools or hot tubs. Sexual Activity: Wait until after follow-up appointment Exercise/Sports: Wait until after follow-up appointment Driving/Machine Use: No driving. Weightbearing: Full weightbearing Non-emergency contact: Primary Care Provider and Surgeon Call non-emergency contact if: you have any medication questions, your symptoms worsen, your pain is not controlled, your pain is worsening, your pain is unusual for you, your pain is concerning for you, you have a fever, your temperature is above 101, your wound has increased redness, your wound has increased drainage and your wound pain has increased Follow-up/Referrals: Brook Dawn DO [Primary Care Provider] - Diet: Carb Consistent or DM2 Addtl Attending Provider Instructions: ACTIVITY RECOMMENDATIONS: SELF CARE INSTRUCTIONS AFTER TOTAL HIP REPLACEMENT Until the incision and soft tissues around your hip have healed, there is a possibility that the hip prosthesis could dislocate. A. Observe the following precautions to prevent dislocation: 1. Don't bend your hip greater than 90 degrees. 2. Avoid crossing your legs or ankles while standing or lying. 3. Sit with your feet placed 6 inches apart. 4. When sitting, keep your knees below your hips. Sit on a firm surface, avoid deep, soft chairs and couches. Use an elevated toilet seat in the bathroom. 5. Don't bend over at the waist. Use a long handled shoehorn and a sock aid to help you put on your shoes and socks. A early breastfeeding care specialist can help you coal picker objects that are too high or too low to reach. 6. Keep car riding to a minimum for at least one month after surgery. B. Your balance may be shaky for a while. Use crutches or a walker until directed by your doctor. C. Use hand rails when walking on stairs. D. Wear low heeled shoes with non-slip soles. E. Be sure that your floors are free of things that could trip you - throw rugs, electrical cords, small objects. Avoid wet and waxed floors, especially with crutches and canes. F. Try to walk several times a day with rest periods between. G. Continue with all the exercises taught to you in the hospital. Again, make walking a part of your daily routine. SPECIAL CARE INSTRUCTIONS: VERY IMPORTANT TO READ AND REVIEW A. You may still be at risk for phlebitis and blood clots. 1. Wear surgical stockings (LYNETTE hose) for 2 weeks after surgery to improve circulation and reduce swelling. 2. Take Aspirin 81mg twice daily for 4 weeks or as directed by your doctor. This is your blood thinner. 3. High risk patients may be prescribed a stronger blood thinner if necessary. 4. If you are on Coumadin normally, your family doctor/pattern clerk should monitor your blood work. Expect a phone call the day of or the day after bloodwork is drawn to adjust your dosage. B. You must take antibiotics before having dental work, bladder, bowel and other surgery. Your doctor will provide you with a permanent card to carry describing precautions. C. Call [facility] if you have a fever, redness or swelling around the incision, cloudy drainage from incision, or sudden increase in pain in your hip, not relieved by your regular pain medication. D. Please call the office at if you have any concerns or questions about your operation or recovery. * YOU MAY SHOWER, NO TUB BATHS UNTIL CLEARED BY YOUR DOCTOR. * WEAR LYNETTE HOSE 20 HOURS PER DAY FOR 2 WEEKS. * YOU SHOULD USE A WALKER OR CRUTCHES FOR 2-4 WEEKS. THIS WILL HELP PREVENT STRAIN ON YOUR HIP MUSCLE AND ALLOW IT TO HEAL PROPERLY. YOU MAY WEAN TO A CANE TOLERATED. * MOST PATIENTS WILL HAVE HOME NURSING FOR THERAPY. IF YOU DECIDE TO DO OUTPATIENT PHYSICAL THERAPY, PLEASE SCHEDULE THIS 3 TIMES PER WEEK. *RYDER incisional vac is a special dressing covering your incision. This dressing provides a sterile dry environment while you are healing. The dressing is to be left in place for 7 days post-operatively. Your home nurse or surgeon will remove. If you develop any redness or blisters or have any questions notify your surgeon immediately. FOLLOW UP VISIT: If appointment is not already scheduled: Please call [facility] to make a follow-up appointment for 2 weeks after your surgery at . Pending Studies at Discharge: No Stand-Alone Forms: [facility], Opioid Pain Management, Smoking Cessation Medications and DC Order Prescriptions: New celecoxib [Celebrex] 200 mg Capsule 200 mg PO BID PRN (Reason: pain/inflammation) Qty: 28 RF: 0 aspirin 81 mg Tablet,Delayed Release (Dr/Ec) 81 mg PO BID Qty: 56 RF: 0 acetaminophen 500 mg Tablet 1,000 mg PO Q8 PRN (Reason: pain/fevers) Qty: 90 RF: 0 oxycodone 5 mg Tablet 5 mg PO Q6H MDD 4 PRN (Reason: pain) Qty: 30 RF: 0 sennosides [Senokot] 8.6 mg Tablet 17.2 mg PO HS PRN (Reason: constipation) Qty: 28 RF: 0 Continued multivitamin Tablet 1 tab PO QAM RF: 0 lovastatin 40 mg Tablet 40 mg PO HS RF: 0 garlic 1,000 mg Capsule 1,000 mg PO QAM RF: 0 clonidine HCl 0.2 mg Tablet 0.2 mg PO HS RF: 0 ascorbic acid (vitamin C) [Vitamin C] 500 mg Tablet 500 mg PO QAM RF: 0 amlodipine 10 mg Tablet 10 mg PO QAM RF: 0 omeprazole 20 mg Capsule,Delayed Release(Dr/Ec) 20 mg PO QAM RF: 0 losartan 100 mg Tablet 100 mg PO QAM RF: 0 metoprolol tartrate 25 mg Tablet 25 mg PO BID RF: 0 fenofibrate nanocrystallized 145 mg Tablet 145 mg PO QAM RF: 0 omega 6-oag-hng-fish oil 900-1,400 mg Capsule,Delayed Release(Dr/Ec) 1 cap PO QAM RF: 0 magnesium oxide 400 mg magnesium Tablet 400 mg PO BID RF: 0 Jentadueto XR 5-1,000 mg Tablet, Ir - Er, Biphasic 24hr 1 tab PO QPM RF: 0 Discontinued aspirin [Aspir-81] 81 mg Tablet,Delayed Release (Dr/Ec) 81 mg PO HS RF: 0 Discharge Orders: Discharge Order (Routine); Ordered 06/23/20 Ordered By: Neri Cummings/Other Patient Handouts: Managing Type 2 Diabetes, Managing Diabetes: The A1C Test Admission Data Admit Date/Time: 06/22/20 09:09 Attending Provider: Neri Strauss Admit Provider: Neri Strauss Primary Care Provider: Brook Dawn Other Interventions: Discharge Summary Assessment (RN) Last Done: 06/23/20 10:36
[2020-06-23] MEDS ORDERED: CeleBREX 200 MG CAP PO SCH (21:00)
== END 2020-06-23 14:22 | disposition home health service (06) | DRG 470 ==
LOC: 3E 05:09 → ASU 05:09 → OBSVTOIN 09:09